=== PATIENT | male | born 1995 | race Caucasian/White ===

== ENCOUNTER 2017-05-09 19:34 | Emergency (ER) | payer OTHER ==
--- NOTE | 2017-05-09 21:12 | ED ---
General Adult HPI - General Chief complaint: Dizziness Stated complaint: Hx Pul Embol/complications from donating plasma Time Seen by Provider: 05/09/17 20:24 Source: patient, RN notes reviewed Mode of arrival: ambulatory Limitations: no limitations - History of Present Illness Initial comments: 22 yo male presents to the ER with lightheadedness and chest pain. Patient has a history of a PE in the past. Patient will be this morning with some chest pain and some lightheadedness. Patient states that he also did donate plasma yesterday he is currently not on any blood thinners since November for PE that he had. Patient states he does not know if his symptoms are related to the plasma donation or to possibly a blood clot. Patient states that he at this time is not currently having pain just happened this morning. Patient denies any cough cold symptoms with this. Patient states bright he is not currently having any other symptoms.Patient denies any recent fever, chills, back pain, abdominal pain, nausea vomiting, numbness or tingling, dysuria or hematuria, constipation or diarrhea, headaches or visual changes, or any other current symptoms. - Related Data Home Medications Medication Instructions Recorded Confirmed Sertraline [Zoloft] 100 mg PO DAILY 05/09/17 05/09/17 Allergies Allergy/AdvReac Type Severity Reaction Status Date / Time vancomycin Allergy Rash/Hives Verified 05/09/17 20:08 Review of Systems ROS Statement: Those systems with pertinent positive or pertinent negative responses have been documented in the HPI. ROS Other: All systems not noted in ROS Statement are negative. Past Medical History Past Medical History: Pulmonary Embolus (PE) History of Any Multi-Drug Resistant Organisms: None Reported Past Surgical History: No Surgical Hx Reported Past Psychological History: PTSD Smoking Status: Current some day smoker Past Alcohol Use History: None Reported Past Drug Use History: None Reported General Exam - General Exam Comments Initial Comments: General: The patient is awake and alert, in no distress, and does not appear acutely ill. Eye: Pupils are equal, round and reactive to light, extra-ocular movements are intact; there is normal conjunctiva bilaterally. No signs of icterus. Ears, nose, mouth and throat: There are moist mucous membranes. Neck: The neck is supple, there is no tenderness. Cardiovascular: There is a regular rate and rhythm. No murmur, rub or gallop is appreciated. Respiratory: Lungs are clear to auscultation, respirations are non-labored, breath sounds are equal. No wheezes, stridor, rales, or rhonchi. Gastrointestinal: Soft, non-distended, non-tender abdomen without masses or organomegaly noted. There is no rebound or guarding present. No CVA tenderness. Bowel sounds are unremarkable. Back: There is no tenderness to palpation in the midline. There is no obvious deformity. No rashes noted. Musculoskeletal: Normal ROM, no tenderness, There is no pedal edema. There is no calf tenderness or swelling. Sensation intact. Pulses equal bilaterally 2+. Neurological: CN II-XII intact, There are no obvious motor or sensory deficits. Coordination appears grossly intact. Speech is normal. Skin: Skin is warm and dry and no rashes or lesions are noted. Psychiatric: Cooperative, appropriate mood & affect, normal judgment. Limitations: no limitations Course Vital Signs 05/09/17 05/09/17 05/09/17 19:50 20:22 22:00 Temperature 97.7 F 98.4 F 97.5 F L Pulse Rate 81 90 58 L Respiratory 18 18 19 Rate Blood Pressure 134/85 140/84 133/81 O2 Sat by Pulse 97 100 97 Oximetry Medical Decision Making - Medical Decision Making 22 yo male presents to the ER with cc lightheadedness following plasma donation. This time patient never is reviewed and does not show any process. This time we discussed continuing hydration at home. Discussed return parameters follow-up and all questions. Patient stated that he understood and he is. This plan. This time he will be discharged. - Lab Data Result diagrams: 05/09/17 21:20 05/09/17 21:20 Lab Results 05/09/17 05/09/17 05/09/17 Range/Units 21:20 21:20 21:20 WBC 10.0 (3.8-10.6) k/uL RBC 5.51 (4.30-5.90) m/uL Hgb 17.1 (13.0-17.5) gm/dL Hct 45.5 (39.0-53.0) % MCV 82.7 (80.0-100.0) fL MCH 31.0 (25.0-35.0) pg MCHC 37.5 H (31.0-37.0) g/dL RDW 12.9 (11.5-15.5) % Plt Count 160 (150-450) k/uL Neutrophils % 61 % Lymphocytes % 31 % Monocytes % 4 % Eosinophils % 2 % Basophils % 1 % Neutrophils # 6.1 (1.3-7.7) k/uL Lymphocytes # 3.1 (1.0-4.8) k/uL Monocytes # 0.4 (0-1.0) k/uL Eosinophils # 0.2 (0-0.7) k/uL Basophils # 0.1 (0-0.2) k/uL PT 10.7 (9.0-12.0) sec INR 1.1 (<1.1) APTT 23.7 (22.0-30.0) sec D-Dimer <0.17 (<0.60) mg/L FEU Sodium 140 (137-145) mmol/L Potassium 4.1 (3.5-5.1) mmol/L Chloride 104 (98-107) mmol/L Carbon Dioxide 25 (22-30) mmol/L Anion Gap 11 mmol/L BUN 17 (9-20) mg/dL Creatinine 0.90 (0.66-1.25) mg/dL Est GFR (MDRD) Af Amer >60 (>60 ml/min/1.73 sqM) Est GFR (MDRD) Non-Af >60 (>60 ml/min/1.73 sqM) Glucose 88 (74-99) mg/dL Calcium 9.6 (8.4-10.2) mg/dL Total Bilirubin 0.9 (0.2-1.3) mg/dL AST 24 (17-59) U/L ALT 37 (21-72) U/L Alkaline Phosphatase 75 (38-126) U/L Total Protein 6.7 (6.3-8.2) g/dL Albumin 4.3 (3.5-5.0) g/dL - Radiology Data Radiology results: report reviewed, image reviewed Disposition Clinical Impression: Weakness Disposition: HOME SELF-CARE Condition: Stable Instructions: Weakness (ED) Additional Instructions: Please use medication as discussed. Please follow up with family doctor if symptoms have not improved over the next two days. Please return to the emergency room if your symptoms increase or worsen or for any other concerns. Referrals: Lourdes Nina MD [STAFF PHYSICIAN] - 1-2 days Time of Disposition: 22:21
[2017-05-09 21:32] LABS: Basophils # (A) 0.1 k/uL (0-0.2); Basophils % (A) 1 %; CH 30.8; CHCM 37.4; Eosinophils # (A) 0.2 k/uL (0-0.7); Eosinophils % (A) 2 %; HCT 45.5 % (39.0-53.0); HGB 17.1 gm/dL (13.0-17.5); Luc # (Auto) 0.14; Luc % (Auto) 1; Lymphocytes # (A) 3.1 k/uL (1.0-4.8); Lymphocytes % (A) 31 %; MCHC 37.5 g/dL (31.0-37.0); MCV 82.7 fL (80.0-100.0); Monocytes # (A) 0.4 k/uL (0-1.0); Monocytes % (A) 4 %; Neutrophils # (A) 6.1 k/uL (1.3-7.7); Neutrophils % (A) 61 %; RBC 5.51 m/uL (4.30-5.90); RDW 12.9 % (11.5-15.5); WBC (Perox) 9.26
[2017-05-09 21:43] LABS: ALT 37 U/L (21-72); AST 24 U/L (17-59); Alkaline Phosphatase 75 U/L (38-126); Anion Gap 11 mmol/L; Blood Urea Nitrogen 17 mg/dL (9-20); Calcium 9.6 mg/dL (8.4-10.2); Carbon Dioxide 25 mmol/L (22-30); Chloride 104 mmol/L (98-107); Glucose 88 mg/dL (74-99); Non-African American GFR(MDRD) >60 (>60 ml/min/1.73 sqM); Potassium 4.1 mmol/L (3.5-5.1); Sodium 140 mmol/L (137-145); Total Bilirubin 0.9 mg/dL (0.2-1.3); Total Protein 6.7 g/dL (6.3-8.2)
[2017-05-09 21:46] LABS: INR 1.1 (<1.1); Partial Thromboplastin Time 23.7 sec (22.0-30.0); Prothrombin Time 10.7 sec (9.0-12.0)
--- NOTE | 2017-05-09 21:55 | XR ---
EXAMINATION TYPE: XR chest 2V DATE OF EXAM: 05/09/2017 COMPARISON: NONE HISTORY: Cough TECHNIQUE: Frontal and lateral views of the chest are obtained. FINDINGS: There is no focal air space opacity, pleural effusion, or pneumothorax seen. The cardiac silhouette size is within normal limits. The osseous structures are intact. IMPRESSION: No acute cardiopulmonary process.
[2017-05-09 22:40] VITALS: BP 140/88; PULSE 57; RESP 20; TEMP 97.3
== END 2017-05-09 22:41 | disposition home or self-care (01) ==
LOC: EC 19:34
DX: R53.1 Weakness (principal); R07.9 Chest pain, unspecified; F17.200 Nicotine dependence, unspecified, uncomplicated; Z88.1 Allergy status to other antibiotic agents; Z79.899 Other long term (current) drug therapy
CPT/HCPCS: 36415; 71020; 80053; 85025; 85379; 85610; 85730; 99284

== ENCOUNTER 2017-07-06 20:24 | Emergency (ER) | payer OTHER ==
[2017-07-06 20:31] VITALS: BP 153/89; PULSE 87; RESP 16; TEMP 98.4
--- NOTE | 2017-07-06 20:49 | ED ---
Male Urogenital HPI - General Chief complaint: Urogenital Stated complaint: Urogenital Time Seen by Provider: 07/06/17 20:35 Source: patient, family, RN notes reviewed Mode of arrival: ambulatory Limitations: no limitations - History of Present Illness Initial comments: This a 22-year-old male presents emergency Department with chief complaint of medication reaction. Patient states that he took Viagra for the first time last night. He is unsure what the doses. Patient states [facility] to problems with [facility]aculation. Patient states that he took it around 8 or 9 PM last night states he direction until 9 AM this morning. He states that has resolved. Patient felt that there was some discoloration. He states actually at this time has resolved. He denies any pain. He states he has no difficulty urinating. Patient denies abdominal pain, scrotal swelling. Patient did call his doctor who advised him to be seen this morning but never was. Patient states that he currently is taking antidepressants which it causes issue. - Related Data Home Medications Medication Instructions Recorded Confirmed Sertraline [Zoloft] 100 mg PO DAILY 05/09/17 05/09/17 Allergies Allergy/AdvReac Type Severity Reaction Status Date / Time vancomycin Allergy Rash/Hives Verified 07/06/17 20:30 Review of Systems ROS Statement: Those systems with pertinent positive or pertinent negative responses have been documented in the HPI. ROS Other: All systems not noted in ROS Statement are negative. Past Medical History Past Medical History: Pulmonary Embolus (PE) History of Any Multi-Drug Resistant Organisms: None Reported Past Surgical History: No Surgical Hx Reported Past Psychological History: PTSD Smoking Status: Current some day smoker Past Alcohol Use History: None Reported Past Drug Use History: None Reported General Exam Limitations: no limitations General appearance: alert, in no apparent distress Respiratory exam: Present: normal lung sounds bilaterally. Absent: respiratory distress, wheezes, rales, rhonchi, stridor Cardiovascular Exam: Present: regular rate, normal rhythm, normal heart sounds. Absent: systolic murmur, diastolic murmur, rubs, gallop, clicks GI/Abdominal exam: Present: soft, normal bowel sounds. Absent: distended, tenderness, guarding, rebound, rigid exam: Present: normal inspection, circumcision, other (Patient has no evidence of priapism at this time. Patient color and blood flow appears to be appropriate.). Absent: testicular tenderness, urethral discharge, scrotal swelling, vertical testicular lie Course Vital Signs 07/06/17 20:30 Temperature 98.4 F Pulse Rate 87 Respiratory 16 Rate Blood Pressure 153/89 O2 Sat by Pulse 99 Oximetry Medical Decision Making - Medical Decision Making 22-year-old female presented for priapism. Patient's symptoms have resolved. Patient does not appear to have any acute abnormality. Patient is advised not to take Viagra. [facility] is [facility]. Disposition Clinical Impression: Priapism Disposition: HOME SELF-CARE Condition: Stable Instructions: Priapism (ED) Additional Instructions: Please return to the Emergency Department if symptoms worsen or any other concerns. Referrals: Daryn Dave DO [Primary Care Provider] - 1-2 days Time of Disposition: 20:49
== END 2017-07-06 21:03 | disposition home or self-care (01) ==
LOC: EC 20:24
DX: N48.33 Priapism, drug-induced (principal); T46.7X5A Adverse effect of peripheral vasodilators, initial encounter; F43.10 Post-traumatic stress disorder, unspecified; F17.200 Nicotine dependence, unspecified, uncomplicated; Z88.1 Allergy status to other antibiotic agents; Z88.8 Allergy status to other drugs, medicaments and biological substances
CPT/HCPCS: 99283

== ENCOUNTER 2017-09-11 17:10 | Emergency (ER) | payer OTHER ==
[2017-09-11 17:35] VITALS: PULSE 81
--- NOTE | 2017-09-11 18:03 | ED ---
Eye Problem HPI - General Chief complaint: Eye Problems Stated complaint: LEFT EYE PAIN, RECENT 3 WEEKS AGO Hx [place] Time Seen by Provider: 09/11/17 17:53 Source: patient, RN notes reviewed Mode of arrival: ambulatory Limitations: no limitations - History of Present Illness Initial comments: This is a 22-year-old male who presents to the emergency department with chief complaint of left eye redness. Patient states that he was diagnosed with conjunctivitis 3 weeks ago and was given a course of antibiotic eye drops. Patient states that it went away for a couple of days but then the redness returned. Patient states that the eye is uncomfortable, stating it has a burning sensation and is itchy. He reports photophobia and excessive lacrimation. He denies any foreign body sensation. He denies discharge or crusting from the eye. Denies any upper respiratory symptoms including nasal congestion, runny nose, sore throat, ear pain or cough. Denies fever, chills, chest pain, shortness of breath, abdominal pain, nausea or vomiting, constipation or diarrhea, dysuria or hematuria, numbness or tingling, headache or vision changes. - Related Data Previous Rx's Medication Instructions Recorded Ofloxacin 0.3% Ophth Soln [Ocuflox 1 - 2 drops LEFT EYE DIRECTED 09/11/17 Ophth Soln] #1 bottle Allergies Allergy/AdvReac Type Severity Reaction Status Date / Time vancomycin Allergy Rash/Hives Verified 09/11/17 17:35 Review of Systems ROS Statement: Those systems with pertinent positive or pertinent negative responses have been documented in the HPI. ROS Other: All systems not noted in ROS Statement are negative. Past Medical History Past Medical History: Pulmonary Embolus (PE) History of Any Multi-Drug Resistant Organisms: None Reported Past Surgical History: No Surgical Hx Reported Past Psychological History: PTSD Smoking Status: Former smoker Past Alcohol Use History: None Reported Past Drug Use History: None Reported General Exam - General Exam Comments Initial Comments: General: Awake and alert, well-developed; in no apparent distress. HEENT: Head atraumatic, normocephalic. Left conjunctiva is injected. On fluorescein staining 1 corneal punctate lesion was noted. It is at approximately 7:00 overlying the iris. Visual examination lesion is opaque. Pupils are equal, round and reactive to light. Extraocular movements intact. Oropharynx moist without erythema or exudate. Neck: Supple. Normal ROM. Cardiovascular: Regular rate and rhythm. No murmurs, rubs or gallops. Chest symmetrical. Respiratory: Lungs clear to auscultation bilaterally. No wheezes, rales or rhonchi. Normal respiratory effort with no use of accessory muscles. Skin: [place], warm and dry without rashes or lesions. Neurological: Alert and oriented x3. CN II-XII grossly intact. Speech is fluent and answers are appropriate. No focal neuro deficits. Psychiatric: Normal mood and affect. No overt signs of depression or anxiety noted. Limitations: no limitations Course Vital Signs 09/11/17 17:34 Temperature 98.5 F Pulse Rate 81 Respiratory 18 Rate Blood Pressure 138/87 O2 Sat by Pulse 98 Oximetry Medical Decision Making - Medical Decision Making This is a 22-year-old male who presents to the emergency department with chief complaint of left eye redness. Patient was treated 3 weeks ago for conjunctivitis with antibiotic eye drops. Patient reports some resolution with return of redness a couple days later. Denies any vision changes. On fluorescence staining 1 corneal opacity was noted. This case was discussed with attending physician, Dr. Henson who also evaluated the patient. Dr. Henson was in contact with ophthalmology. Patient will be prescribed ofloxacin drops to be applied every couple of hours while awake. He is to follow-up with Dr. Carlson, ophthalmology tomorrow morning. Patient is in agreement to the plan and voices understanding. All questions were answered. Disposition Clinical Impression: Corneal ulcer Disposition: HOME SELF-CARE Condition: Good Instructions: Corneal Ulcer (ED) Additional Instructions: Please follow up with Dr. Carlson, ophthalmology tomorrow morning. Dr. Carlson is expecting you. Please apply ofloxacin drops to affected eye every couple of hours while awake. Please follow up with primary care provider within 1-2 days. Return to emergency department if symptoms should worsen or any concerns arise. Prescriptions: Ofloxacin 0.3% Ophth Soln [Ocuflox Ophth Soln] 1 - 2 drops LEFT EYE DIRECTED #1 bottle Referrals: Daryn Daev DO [Primary Care Provider] - 1-2 days Time of Disposition: 19:21
[2017-09-11] MEDS ORDERED: ERYTHROMYCIN 5 MG/GM OPHTH OINT 3.5 GM TUBE LEFT EYE STA (18:13)
[2017-09-11] MEDS ORDERED: PROPARACAINE 0.5% OPHTH DROPS 15 ML BTL LEFT EYE STA (18:23)
[2017-09-11 19:31] VITALS: BP 135/80; RESP 16; TEMP 98.3
== END 2017-09-11 19:31 | disposition home or self-care (01) ==
LOC: EC 17:10
DX: H16.002 Unspecified corneal ulcer, left eye (principal); Z87.891 Personal history of nicotine dependence; Z88.1 Allergy status to other antibiotic agents
CPT/HCPCS: 99283

== ENCOUNTER 2019-10-01 17:44 | Emergency (ER) | payer OTHER ==
[2019-10-01 17:56] VITALS: RESP 16; TEMP 98.2
[2019-10-01] MEDS ORDERED: SODIUM CHLORIDE 0.9% 1,000 ML IV ONE ×3 (18:14→19:19)
[2019-10-01] MEDS ORDERED: MECLIZINE 12.5 MG TAB PO STA (18:15)
[2019-10-01 18:42] LABS: Basophils % (A) 1 %; Eosinophils # (A) 0.1 k/uL (0-0.7); Eosinophils % (A) 2 %; Lymphocytes # (A) 1.8 k/uL (1.0-4.8); Lymphocytes % (A) 21 %; MCH 30.1 pg (25.0-35.0); MCHC 35.6 g/dL (31.0-37.0); MCV 84.6 fL (80.0-100.0); Mean Platelet Volume 8.8; Monocytes # (A) 0.3 k/uL (0-1.0); Monocytes % (A) 4 %; Neutrophils % (A) 72 %; Platelet Count 168 k/uL (150-450); RBC 5.32 m/uL (4.30-5.90); RDW 12.3 % (11.5-15.5); WBC 8.3 k/uL (3.8-10.6)
[2019-10-01 18:52] LABS: ALT 39 U/L (21-72); AST 28 U/L (17-59); African American GFR (CKD) >90 (>60 ml/min/1.73 sqM); Albumin 4.7 g/dL (3.5-5.0); Alkaline Phosphatase 96 U/L (38-126); Anion Gap 11 mmol/L; Blood Urea Nitrogen 15 mg/dL (9-20); Calcium 9.9 mg/dL (8.4-10.2); Carbon Dioxide 23 mmol/L (22-30); Chloride 105 mmol/L (98-107); Glucose 121 mg/dL (74-99); Non-African American GFR(CKD) >90 (>60 ml/min/1.73 sqM); Potassium 3.9 mmol/L (3.5-5.1); Sodium 139 mmol/L (137-145); Total Bilirubin 0.9 mg/dL (0.2-1.3); Total Protein 7.7 g/dL (6.3-8.2)
[2019-10-01 18:55] LABS: INR 0.9 (<1.2)
--- NOTE | 2019-10-01 18:55 | ED ---
Fall HPI - General Chief Complaint: Fall Stated Complaint: Abnormal EKG, Fall Dizz[facility] Time Seen by Provider: 10/01/19 18:01 Source: patient, RN notes reviewed, old records reviewed Mode of arrival: ambulatory - History of Present Illness Initial Comments: Patient is a 24-year-old male. Presents emergency department today with chief complaint of dizziness lightheadedness. Said having symptoms off and on for the past few months. Patient states that today he became dizzy while going down 4 stairs. He fell and hit his head. Patient states they feel like the room is spinning when he is dizzy. He denies any chest pain shortness of breath at this time. She denies any fevers or chills. - Related Data Previous Rx's Medication Instructions Recorded Ofloxacin 0.3% Ophth Soln [Ocuflox 1 - 2 drops LEFT EYE DIRECTED 09/11/17 Ophth Soln] #1 bottle Meclizine [Antivert] 25 mg PO BID #12 tab 10/01/19 Allergies Allergy/AdvReac Type Severity Reaction Status Date / Time vancomycin Allergy Rash/Hives Verified 10/01/19 17:53 Review of Systems ROS Statement: Those systems with pertinent positive or pertinent negative responses have been documented in the HPI. ROS Other: All systems not noted in ROS Statement are negative. Past Medical History Past Medical History: Pulmonary Embolus (PE) History of Any Multi-Drug Resistant Organisms: None Reported Past Surgical History: No Surgical Hx Reported Past Psychological History: PTSD Smoking Status: Former smoker Past Alcohol Use History: None Reported Past Drug Use History: None Reported General Exam - General Exam Comments Initial Comments: 24-year-old male. Alert and oriented. No distress. Limitations: no limitations General appearance: alert, in no apparent distress Head exam: Present: atraumatic, normocephalic, normal inspection Eye exam: Present: normal appearance, PERRL, EOMI. Absent: scleral icterus, conjunctival injection, periorbital swelling ENT exam: Present: normal exam, mucous membranes moist, other (Patient had some mild nystagmus with left lateral gaze.) Neck exam: Present: normal inspection. Absent: tenderness, meningismus, lymphadenopathy Respiratory exam: Present: normal lung sounds bilaterally. Absent: respiratory distress, wheezes, rales, rhonchi, stridor Cardiovascular Exam: Present: regular rate, normal rhythm, normal heart sounds. Absent: systolic murmur, diastolic murmur, rubs, gallop, clicks GI/Abdominal exam: Present: soft, normal bowel sounds. Absent: distended, tenderness, guarding, rebound, rigid Extremities exam: Present: normal inspection, full ROM, normal capillary refill. Absent: tenderness, pedal edema, joint swelling, calf tenderness Back exam: Present: normal inspection Neurological exam: Present: alert, oriented X3, CN II-XII intact Psychiatric exam: Present: normal affect, normal mood Skin exam: Present: warm, dry, intact, normal color. Absent: rash Course Vital Signs 10/01/19 10/01/19 17:51 18:12 Temperature 98.2 F Pulse Rate 84 Pulse Rate [ 84 Sitting] Pulse Rate [ 108 H Standing] Pulse Rate [ 85 Supine] Respiratory 16 Rate Blood Pressure 143/88 Blood Pressure 146/92 [Sitting] Blood Pressure 150/97 [Standing] Blood Pressure 140/84 [Supine] O2 Sat by Pulse 98 Oximetry Medical Decision Making - Medical Decision Making Male presents today with intermittent dizziness for the past few months. He reports an episode of dizziness where he tripped down 4 stairs. He has an abrasion over his arm and hit his head. Computed tomography scan of the brain was negative for any acute process. Patient's EKG shows no significant changes. Patient has no significant T-wave changes at this time. He denies any chest pain or shortness of breath. Patient's labwork including d-dimer were negative for any other acute process. Is given IV fluids. I discussed the patient's dizziness seems to be possibly related to inner ear imbalance he did have some nystagmus but pain is sometimes complains of dizziness with room spinning description. He also states that the symptoms seem to come and go. Patient states that he had some improvement after receiving IV fluids. I discussed the Patient follow-up with primary care doctor and possibly cardiology. Discussed return parameters. - Lab Data Result diagrams: 10/01/19 18:10/01/19 18: Lab Results 10/01/19 10/01/19 10/01/19 Range/Units 18:22 18:22 18: WBC 8.3 (3.8-10.6) k/uL RBC 5.32 (4.30-5.90) m/uL Hgb 16.0 (13.0-17.5) gm/dL Hct 45.0 (39.0-53.0) % MCV 84.6 (80.0-100.0) fL MCH 30.1 (25.0-35.0) pg MCHC 35.6 (31.0-37.0) g/dL RDW 12.3 (11.5-15.5) % Plt Count 168 (150-450) k/uL Neutrophils % 72 % Lymphocytes % 21 % Monocytes % 4 % Eosinophils % 2 % Basophils % 1 % Neutrophils # 6.0 (1.3-7.7) k/uL Lymphocytes # 1.8 (1.0-4.8) k/uL Monocytes # 0.3 (0-1.0) k/uL Eosinophils # 0.1 (0-0.7) k/uL Basophils # 0.0 (0-0.2) k/uL PT 10.0 (9.0-12.0) sec INR 0.9 (<1.2) APTT 25.0 (22.0-30.0) sec D-Dimer (<0.60) mg/L FEU Sodium 139 (137-145) mmol/L Potassium 3.9 (3.5-5.1) mmol/L Chloride 105 (98-107) mmol/L Carbon Dioxide 23 (22-30) mmol/L Anion Gap 11 mmol/L BUN 15 (9-20) mg/dL Creatinine 0.83 (0.66-1.25) mg/dL Est GFR (CKD-EPI)AfAm >90 (>60 ml/min/1.73 sqM) Est GFR (CKD-EPI)NonAf >90 (>60 ml/min/1.73 sqM) Glucose 121 H (74-99) mg/dL Calcium 9.9 (8.4-10.2) mg/dL Total Bilirubin 0.9 (0.2-1.3) mg/dL AST 28 (17-59) U/L ALT 39 (21-72) U/L Alkaline Phosphatase 96 (38-126) U/L Troponin I (0.000-0.034) ng/mL Total Protein 7.7 (6.3-8.2) g/dL Albumin 4.7 (3.5-5.0) g/dL 10/01/19 10/01/19 Range/Units 18:22 18:22 WBC (3.8-10.6) k/uL RBC (4.30-5.90) m/uL Hgb (13.0-17.5) gm/dL Hct (39.0-53.0) % MCV (80.0-100.0) fL MCH (25.0-35.0) pg MCHC (31.0-37.0) g/dL RDW (11.5-15.5) % Plt Count (150-450) k/uL Neutrophils % % Lymphocytes % % Monocytes % % Eosinophils % % Basophils % % Neutrophils # (1.3-7.7) k/uL Lymphocytes # (1.0-4.8) k/uL Monocytes # (0-1.0) k/uL Eosinophils # (0-0.7) k/uL Basophils # (0-0.2) k/uL PT (9.0-12.0) sec INR (<1.2) APTT (22.0-30.0) sec D-Dimer 0.49 (<0.60) mg/L FEU Sodium (137-145) mmol/L Potassium (3.5-5.1) mmol/L Chloride (98-107) mmol/L Carbon Dioxide (22-30) mmol/L Anion Gap mmol/L BUN (9-20) mg/dL Creatinine (0.66-1.25) mg/dL Est GFR (CKD-EPI)AfAm (>60 ml/min/1.73 sqM) Est GFR (CKD-EPI)NonAf (>60 ml/min/1.73 sqM) Glucose (74-99) mg/dL Calcium (8.4-10.2) mg/dL Total Bilirubin (0.2-1.3) mg/dL AST (17-59) U/L ALT (21-72) U/L Alkaline Phosphatase (38-126) U/L Troponin I <0.012 (0.000-0.034) ng/mL Total Protein (6.3-8.2) g/dL Albumin (3.5-5.0) g/dL 10/01/19 18:55 EKG shows normal sinus rhythm inferior infarct age undetermined. Abnormal EKG. Ventricular rate of 89 bpm. Verbal is 136 most seconds. QRS duration is 100 ms. QT QTc is 334/406 ms. - Radiology Data Radiology results: report reviewed Disposition Clinical Impression: Arm abrasion, Dizziness, Head injury Disposition: HOME SELF-CARE Condition: Good Instructions (If sedation given, give patient instructions): Vertigo (ED), Lightheadedness (ED) Additional Instructions: Please use medication as discussed. He is to rest remain hydrated. Please follow up with family doctor if symptoms have not improved over the next two days. Please return to the emergency room if your symptoms increase or worsen or for any other concerns. Prescriptions: Meclizine [Antivert] 25 mg PO BID #12 tab Is patient prescribed a controlled substance at d/c from ED?: No Referrals: [facility],Clinic [Primary Care Provider] - 1-2 days Ang Patton MD [STAFF PHYSICIAN] - 1-2 days Leno Hutton DO [Doctor of Osteopathic Medicine] - 1-2 days Time of Disposition: 21:13
--- NOTE | 2019-10-01 20:12 | CT ---
EXAMINATION TYPE: CT brain sage romero DATE OF EXAM: 10/01/2019 COMPARISON: NONE HISTORY: Pt fell down flight of stairs, dizziness. Headaches. CT DLP: 1537.4 mGycm. Automated Exposure Control for Dose Reduction was Utilized. TECHNIQUE: CT scan of the head and cervical spine are performed without contrast. FINDINGS: There is no acute intracranial hemorrhage, mass effect, or midline shift identified. The ventricles and sulci are within normal limits in size. Gomez-white matter differentiation is preserve d. The globes are intact and the visualized sinuses are clear. Calvarium is intact. Cervical spine is visualized in its entirety from C1 through upper thoracic levels and demonstrates s traightened alignment without evidence of acute fracture or dislocation. Prevertebral soft tissue ap pears within normal limits. The C1-C2 articulation is within normal limits on the coronal images. Ve rtebral body heights and disc space heights are maintained. Spinal canal is preserved. Axial images a re unremarkable. Thyroid gland is within normal limits. Lung apices are clear. IMPRESSION: 1. There is no acute fracture or dislocation evident in the cervical spine. 2. No acute intracranial hemorrhage, mass effect, or midline shift is seen.
--- NOTE | 2019-10-01 20:13 | XR ---
EXAMINATION TYPE: XR chest 2V DATE OF EXAM: 10/01/2019 COMPARISON: Chest x-ray May 09, 2017. HISTORY: Fall injury with chest pain. TECHNIQUE: Frontal and lateral views of the chest are obtained. FINDINGS: Suboptimal inspiration. Overlying EKG leads. There is no focal air space opacity, pleural e ffusion, or pneumothorax seen. The cardiac silhouette size is within normal limits. The osseous st ructures are intact. IMPRESSION: No acute cardiopulmonary process. No significant change from prior.
[2019-10-01 21:34] VITALS: BP 139/86; PULSE 70
== END 2019-10-01 21:58 | disposition home or self-care (01) ==
LOC: EC 17:44
DX: S09.90XA Unspecified injury of head, initial encounter (principal); S40.819A Abrasion of unspecified upper arm, initial encounter; R42 Dizziness and giddiness; Z87.891 Personal history of nicotine dependence; Z88.1 Allergy status to other antibiotic agents; Z86.711 Personal history of pulmonary embolism; W10.9XXA Fall (on) (from) unspecified stairs and steps, initial encounter
CPT/HCPCS: 36415; 70450; 71046; 72125; 80053; 84484; 85025; 85379; 85610; 85730; 93005; 96360; 99285